=== PATIENT | female | born 1980 | race Caucasian/White ===

== ENCOUNTER 2023-06-21 06:37 | Inpatient (IN) ==
--- NOTE | 2023-06-21 07:30 | Emergency Department Note ---
Impression & Plan Influenza A, Hypoxia ED Provider Note CHIEF COMPLAINT: Illness x 5 days with cough and shortness of breath HISTORY OF PRESENT ILLNESS: Patient is a 42-year-old female with past medical history significant for hypertension, anxiety and hypothyroidism who presents to the emergency department accompanied by family for evaluation of illness. Patient reports that her son was ill with similar symptoms, she began to feel sick about 5 days ago. She reports fever 103 max, cough, headache, body and muscle aches. She reports chest tightness and shortness of breath even with minimal activity. Cough has become productive of yellowish/green sputum. She has tried Advil, Mucinex and a multisymptom cold and flu medication over the weekend. She tried going to [facility] but they were not taking walk-in patients this weekend. She is a smoker, has not been able to smoke for the last couple of days. She has been watching her oxygen saturations on a home pulse ox monitor this weekend and they have been between 84-90%. She reports temperature 101.1 F prior to arrival. She is vaccinated for COVID but has not had a flu vaccine this season. REVIEW OF SYSTEMS: Review of systems as per HPI. All other systems reviewed were negative. 10 systems reviewed. PMH: External medical records are reviewed and summarized as above/below. See Problem List. SOCIAL HISTORY: Patient lives at home9 with her family. Smoker. PHYSICAL EXAM: Vital Signs: Reviewed Nurse's notes. Afebrile in triage, oxygen saturation 90% on room air. MENTAL STATUS: Alert and cooperative. Nontoxic appearing. HEAD: Atraumatic, without temporal or scalp tenderness. EYES: PERRL, EOMI, no discharge or injection. EARS: Tympanic membranes intact, not inflamed, have normal contour. External canals clear. NOSE: Nares patent, turbinates edematous and boggy with clear rhinorrhea. MOUTH: Mucous membranes moist, no lesions, tongue and gums appear normal. THROAT: No pharyngeal injection, exudates, or tonsillar hypertrophy. Airway is patent. NECK: Supple, nontender, no lymphadenopathy. HEART: Regular rate and rhythm without murmurs, ectopy, gallops, or rubs. LUNGS: Breath sounds are diminished, with harsh wheezes throughout. SKIN: Normal. NEUROLOGICAL: Sensory and motor functions grossly intact. Normal gait. EMERGENCY DEPARTMENT COURSE: The patient was seen and assessed as above. External medical records are reviewed. She presents to the emergency department for evaluation of upper respiratory symptoms over the last 5 days with increasing cough, chest tightness and shortness of breath. IV lock was initiated. CBC with differential, CMP, troponin, D-dimer, serum hCG and urinalysis were collected. Upper respiratory Bio Fire was performed. Chest x- ray and EKG were obtained. She was observed on the cardiac monitor technician. Patient was treated with DuoNeb x 2 and IV Decadron. She was hydrated with normal saline solution. She was reassessed frequently. She was reexamined after both nebulizer treatments, had mild improvement in the wheezing. She continued to drop your O2 sats anytime she was off the oxygen, even briefly. I observed sat as low was 86% when I was in the room with the patient and had her off of the oxygen. Despite the normal D-dimer, given the patient's clinical picture and risk factors, I did recommend CT scan of the chest for PE. She was in agreement. Fortunately, no PE. Groundglass opacities noted favor atypical/viral pneumonitis, which does appear consistent with her clinical picture. All laboratory and diagnostic imaging studies were discussed with attending physician, Dr. Alcala. Test results were reviewed with the patient as well. After review of the information above and other included data, I feel the patient would benefit from inpatient care. Discussed observation/admission with the patient, she was in agreement. Patient referred to the [facility] for admission. Diagnostics, as interpreted by me: Laboratory studies: Mildly elevated white count at 12,600 with left shift. No anemia. Hyponatremia with a sodium of 133, otherwise no significant electrolyte imbalance. No OFELIA. No transaminitis. Troponin is not elevated. Serum hCG is negative. Upper respiratory Bio Fire positive for influenza A. ECG: Normal sinus rhythm, 78 bpm. No ectopy, no interval prolongation. No acute ischemic changes. Cardiac Monitoring: Cardiac monitoring: An order was placed for continuous cardiac monitoring. The monitor shows a NSR at a rate of 90 per my interpretation. Imaging studies: Chest x-ray clear, no consolidation or effusion. Chest CT, no PE. Differential diagnosis: acute myocardial infarction, acute coronary syndrome, myocarditis, pericarditis, viral illness, bronchitis, pulmonary embolism, pneumonia, COPD/asthma exacerbation, musculoskeletal, anxiety, costochondritis, among others. Past Med/Surg History Medical History Hypothyroidism Anxiety Hypertension Eczema Surgical History History of cholecystectomy History of dental surgery Social History Smoking Status: Current every day smoker Tobacco Type: Cigarettes Preferred Language: Turkmen Feels Safe at Home: Yes Allergies Allergies Allergy/AdvReac Type Severity Reaction Status Date / Time ampicillin [From Unasyn] Allergy Intermediate Verified 06/21/23 11:16 sulbactam [From Unasyn] Allergy Intermediate Verified 06/21/23 11:16 Home Meds Home Medications Medication Instructions Recorded Confirmed Lactobacillus acidophilus 10 10,000 mmu cells PO DAILY 06/21/23 06/21/23 billion cell capsule (Probiotic) cetirizine 10 mg tablet (Zyrtec) 10 mg PO DAILY PRN Allergy Symptoms 06/21/23 06/21/23 famotidine 20 mg tablet (Pepcid) 20 mg PO HS 06/21/23 06/21/23 levothyroxine 50 mcg tablet 50 mcg PO QAM 06/21/23 06/21/23 magnesium 500 mg tablet 500 mg PO HS 06/21/23 06/21/23 multivitamin 1 tab PO HS 06/21/23 06/21/23 nebivolol 10 mg tablet 10 mg PO HS 06/21/23 06/21/23 paroxetine HCl 40 mg tablet 40 mg PO HS 06/21/23 06/21/23 Results & Data (ED) Vital Signs Vital Signs - 24 hr 06/21/23 06:39 06/21/23 07:59 06/21/23 08:24 Temperature 36.4 C L Temperature Source Oral Pulse Rate 93 H Pulse Rate [Apical] 80 82 Pulse Rhythm Regular Pulse Strength Normal Respiratory Rate 18 16 16 Respiratory Effort / Characteristics Non-Labored Spontaneous Respiratory Depth Normal Respiratory Pattern Regular Blood Pressure 129/84 Blood Pressure [Left Arm] Blood Pressure Mean 99 Blood Pressure Mean [Left Arm] Blood Pressure Position Sitting Pulse Oximetry 90 93 88 L Oxygen Delivery Method Room Air Nebulizer Room Air Oxygen Flow Rate Sepsis Recent Fever Within 48 Hours Yes Sepsis New/Unexplained Change in Mental Status No Sepsis Action Taken by Nursing No Action Required 06/21/23 08:24 06/21/23 09:55 06/21/23 11:25 Temperature Temperature Source Pulse Rate Pulse Rate [Apical] 79 90 85 Pulse Rhythm Pulse Strength Respiratory Rate 16 16 19 Respiratory Effort / Characteristics Respiratory Depth Respiratory Pattern Blood Pressure Blood Pressure [Left Arm] 124/71 Blood Pressure Mean Blood Pressure Mean [Left Arm] 88 Blood Pressure Position Pulse Oximetry 91 94 93 Oxygen Delivery Method Nasal Cannula Nasal Cannula Nasal Cannula Oxygen Flow Rate 2 2 2 Sepsis Recent Fever Within 48 Hours Sepsis New/Unexplained Change in Mental Status Sepsis Action Taken by Nursing 06/21/23 12:59 06/21/23 13:16 Temperature Temperature Source Pulse Rate Pulse Rate [Apical] 83 Pulse Rhythm Pulse Strength Respiratory Rate 16 Respiratory Effort / Characteristics Respiratory Depth Respiratory Pattern Blood Pressure Blood Pressure [Left Arm] 124/71 Blood Pressure Mean Blood Pressure Mean [Left Arm] 88 Blood Pressure Position Pulse Oximetry 91 Oxygen Delivery Method Nasal Cannula Nasal Cannula Oxygen Flow Rate 2 Sepsis Recent Fever Within 48 Hours Sepsis New/Unexplained Change in Mental Status Sepsis Action Taken by Long Term Medications Current Medication List: was personally reviewed by me Laboratory Data Attestation: I reviewed the patient's lab results. 06/21/23 08:07 06/21/23 08:07 Lab Results 06/21/23 06/21/23 Range/Units 07:54 08:07 WBC 12.61 H (4.8-10.8) K/ul RBC 4.52 (4.20-5.40) M/uL Hgb 13.9 (12.0-16.0) g/dl Hct 40.6 (37.0-47.0) % MCV 89.8 (80.0-100.0) fL MCH 30.8 (25.0-34.0) pg MCHC 34.2 (32.0-36.0) g/dL RDW Std Deviation 44.1 (36.4-46.3) fL RDW Coeff of Jesus 13.3 (11.5-14.5) % Plt Count 337 (130-400) K/uL MPV 10.7 (9.4-12.4) fL Immature Gran % (Auto) 0.6 % Neut % (Auto) 69.2 % Lymph % (Auto) 23.7 % [place] % (Auto) 6.0 % Eos % (Auto) 0.2 % Baso % (Auto) 0.3 % Neut # (Auto) 8.73 H (1.40-6.50) K/uL Lymph # (Auto) 2.99 (1.20-3.40) K/uL [place] # (Auto) 0.76 H (0.11-0.59) K/uL Eos # (Auto) 0.02 (0.00-0.50) K/uL Baso # (Auto) 0.04 (0.00-0.20) K/uL Immature Gran # (Auto) 0.07 (0.01-0.20) K/uL D-Dimer 390 (0-500) ug/L FEU Sodium 133 L (136-145) mmol/L Potassium 4.5 (3.5-5.1) mmol/L Chloride 101 (98-107) mmol/L Carbon Dioxide 24 (21-32) mmol/L Anion Gap 8 (3-11) BUN 8 (6-23) mg/dl Creatinine 0.83 (0.6-1.2) mg/dl Est Cr Clr Drug Dosing 96.6 ml/min Est GFR ( Amer) 100.1 ml/min Est GFR (Non-Af Amer) 86.4 ml/min BUN/Creatinine Ratio 9.6 L (10-20) Glucose 106 H (70-99(Fasting)) mg/dl Calcium 9.1 (8.6-10.3) mg/dl Total Bilirubin 0.2 (0.2-1.0) mg/dl AST 23 (13-39) U/L ALT 16 (7-52) U/L Alkaline Phosphatase 61 (34-104) U/L Troponin I High Sens 3.4 (0-14) pg/ml Total Protein 7.2 (6.0-8.3) gm/dl Albumin 4.2 (3.4-5.0) gm/dl Globulin 3.0 (2.5-4.0) gm/dl Albumin/Globulin Ratio 1.4 (0.9-2) HCG, Qual Negative (Negative) Adenovirus (PCR) Not Detected (NotDetected) B. pertussis DNA (PCR) Not Detected (NotDetected) B.parapertussis DNA PCR Not Detected (NotDetected) C. pneumoniae DNA (PCR) Not Detected (NotDetected) Coronavirus OC43 (PCR) Not Detected (NotDetected) Coronavirus HKU1 (PCR) Not Detected (NotDetected) Coronavirus 229E (PCR) Not Detected (NotDetected) SARS-CoV-2 (PCR) Not Detected (NotDetected) Coronavirus NL63 (PCR) Not Detected (NotDetected) Human Metapneumovir PCR Not Detected (NotDetected) Influenza A (H3) PCR DETECTED A (NotDetected) Influenza Type B (PCR) Not Detected (NotDetected) M. pneumoniae (PCR) Not Detected (NotDetected) Parainfluenza 1 (PCR) Not Detected (NotDetected) Parainfluenza 2 (PCR) Not Detected (NotDetected) Parainfluenza 3 (PCR) Not Detected (NotDetected) Parainfluenza 4 (PCR) Not Detected (NotDetected) RSV (PCR) Not Detected (NotDetected) Entero/Rhino (PCR) Not Detected (NotDetected) Administered Medications Discontinued Medications Albuterol (Albut/Ipratrop 3mg/0.5mg Neb 3 Ml Vial) 3 ml NEB NOW STA; Protocol Stop: 06/21/23 07:27 Last Admin: 06/21/23 07:58 Dose: 3 ml Documented By: MICHAEL Albuterol (Albut/Ipratrop 3mg/0.5mg Neb 3 Ml Vial) 3 ml NEB NOW STA; Protocol Stop: 06/21/23 09:15 Last Admin: 06/21/23 09:27 Dose: 3 ml Documented By: EVANGELINA Dexamethasone Sodium Phosphate (DexamethasonePf 10 Mg/Ml Vial) 10 mg IV NOW ONE Stop: 06/21/23 09:15 Last Admin: 06/21/23 09:27 Dose: 10 mg Documented By: EVANGELINA Sodium Chloride (Nss) 1,000 mls @ 999 mls/hr IV .Q1H1M SHRAVAN Stop: 06/21/23 08:26 Last Infusion: 06/21/23 11:23 Dose: Infused Documented By: Admin: 06/21/23 07:58 Dose: 999 mls/hr Documented By: MICHAEL Sodium Chloride (Nss) 1,000 mls @ 999 mls/hr IV .Q1H1M SHRAVAN Stop: 06/21/23 11:01 Last Infusion: 06/21/23 13:02 Dose: Infused Documented By: Admin: 06/21/23 11:23 Dose: 999 mls/hr Documented By: KV Ioversol (Optiray 320 125ml) 118 ml IV ONCE ONE Stop: 06/21/23 11:14 Last Admin: 06/21/23 11:13 Dose: 118 ml Documented By: AVERY Imaging Data Attestation: I personally reviewed and interpreted this imaging study as follows: Radiologist's Impression: Chest X-Ray 06/21/23 07:26 XR chest 1V portable HISTORY: 42 years-old Female Dyspnea acute shortness of breath COMPARISON: None TECHNIQUE: AP view of the chest FINDINGS: Cardiomediastinal and hilar silhouettes are within normal limits. No pneumothorax, pleural effusion, airspace consolidation or pulmonary edema. Bones of the chest appear grossly intact. IMPRESSION: No acute process. ACT 112: Negative or not required by law. The above report was generated using voice recognition software. It may contain grammatical, syntax or spelling errors. Electronically signed by: German Mendoza M.D. 06/21/2023 8:24 AM Chest CTA 06/21/23 10:00 CHEST CTA for PULMONARY ARTERIES CT DOSE: 834.28 mGy.cm HISTORY: Shortness of breath, HYPOXIA, FLU A + TECHNIQUE: Multiaxial CT images of the chest were performed following the intravenous administration of contrast to evaluate the pulmonary arteries. 3D/Maximal intensity projection images were also obtained. Sagittal and coronal reformations were also reviewed. A dose lowering technique was utilized adhering to the principles of ALARA. COMPARISON STUDY: None. FINDINGS: Normal caliber thoracic aorta with no evidence for a dissection. The heart is normal in size. No pleural or pericardial effusions. No filling defects within the pulmonary arteries to suggest a pulmonary embolus. No acute fractures. Limited views of the upper abdomen demonstrate a normal liver, spleen, and adrenal glands. Prior cholecystectomy. The thyroid gland enhances normally. No mediastinal or left hilar lymphadenopathy. There are borderline enlarged right hilar lymph nodes measuring up to 8 mm in short axis diameter. These are asymmetric in comparison to the left side. Normal esophagus. No pneumothorax. The trachea is patent. Mild central bronchial wall thickening with a few partially opacified distal right lower lobe bronchi. Mosaic attenuation within the lungs suggestive of mild air trapping. There are small patchy groundglass airspace opacities seen within the right lung most pronounced within the right upper lobe. This favors a mild atypical/viral pneumonitis. Right basilar linear densities favor subsegmental atelectasis or scarring. IMPRESSION: 1. No evidence for a pulmonary embolus. 2. There are small patchy groundglass airspace opacities seen within the right lung most pronounced within the right upper lobe. This favors a mild atypical/viral pneumonitis. 3. Mild central bronchial wall thickening with evidence for mild air trapping. ACT 112: Negative or not required by law. Electronically signed by: Chris Leonard M.D. 06/21/2023 12:04 PM Discharge Plan Visit Data Chief Complaint: Flu Like Symptoms Stated Complaint: CHEST PAIN,FEVER,SHORTNESS OF BREATH ED Provider: Surinder Alcala ED Midlevel Provider: Ramirez Christine Discharge Problem: Influenza A, Hypoxia Patient Disposition: Admitted As Inpatient Discharge Instructions Interventions: ED Discharge Assessment Last Done: 06/21/23 13:16 Forms Stand Alone Forms: [facility] Prescriptions Prescriptions: No Action multivitamin Tablet 1 tab PO HS magnesium 500 mg Tablet 500 mg PO HS cetirizine [Zyrtec] 10 mg Tablet 10 mg PO DAILY PRN (Reason: Allergy Symptoms) famotidine [Pepcid] 20 mg Tablet 20 mg PO HS levothyroxine 50 mcg tablet 50 mcg PO QAM paroxetine HCl 40 mg tablet 40 mg PO HS nebivolol 10 mg tablet 10 mg PO HS Probiotic 10 billion cell Capsule 10,000 mmu cells PO DAILY Referrals Referrals: Pamela Hrenandez MD [Hospitalist] -
[2023-06-21] MEDS: SODIUM CHLORIDE 0.9% 1,000 ML IV SCH ×2 (07:58→11:23)
[2023-06-21] MEDS: ALBUT/IPRATROP 3MG/0.5MG NEB 3 ML VIAL NEB STA ×2 (07:58→09:27)
--- NOTE | 2023-06-21 08:26 | XRay Report ---
XR chest 1V portable HISTORY: 42 years-old Female Dyspnea acute shortness of breath COMPARISON: None TECHNIQUE: AP view of the chest FINDINGS: Cardiomediastinal and hilar silhouettes are within normal limits. No pneumothorax, pleural effusion, airspace consolidation or pulmonary edema. Bones of the chest appear grossly intact. IMPRESSION: No acute process. ACT 112: Negative or not required by law. The above report was generated using voice recognition software. It may contain grammatical, syntax o r spelling errors. Electronically signed by: German Mendoza M.D. 06/21/2023 8:24 AM
[2023-06-21 08:49] LABS: Albumin Globulin Ratio 1.4 (0.9-2); Albumin Level 4.2 gm/dl (3.4-5.0); BUN Creatinine Ratio 9.6 (10-20); Bilirubin,Total 0.2 mg/dl (0.2-1.0); Calcium 9.1 mg/dl (8.6-10.3); Creatinine Clr Calc Pharmacy 96.6 ml/min; Est GFR (African American) 100.1 ml/min; Est GFR (Non-African American) 86.4 ml/min; Potassium 4.5 mmol/L (3.5-5.1); Total Protein 7.2 gm/dl (6.0-8.3)
[2023-06-21 08:55] LABS: Troponin I High Sensitivity 3.4 pg/ml (0-14)
[2023-06-21 08:58] LABS: Adenovirus PCR Not Detected (NotDetected); Bordetella parapertussis PCR Not Detected (NotDetected); Bordetella pertussis PCR Not Detected (NotDetected); Chlamydia pneumoniae PCR Not Detected (NotDetected); Coronavirus 229E PCR Not Detected (NotDetected); Coronavirus CoV-2 (COVID19)PCR Not Detected (NotDetected); Coronavirus HKU1 PCR Not Detected (NotDetected); Coronavirus NL63 PCR Not Detected (NotDetected); Coronavirus OC43PCR Not Detected (NotDetected); Human Metapneumovirus PCR Not Detected (NotDetected); Influenza A (H3) PCR DETECTED (NotDetected); Influenza B PCR Not Detected (NotDetected); Mycoplasma pneumoniae PCR Not Detected (NotDetected); Parainfluenza Virus 1 PCR Not Detected (NotDetected); Parainfluenza Virus 2 PCR Not Detected (NotDetected); Parainfluenza Virus 3 PCR Not Detected (NotDetected); Parainfluenza Virus 4 PCR Not Detected (NotDetected); Respiratory Syncytial VirusPCR Not Detected (NotDetected); Rhinovirus/Enterovirus PCR Not Detected (NotDetected)
[2023-06-21 08:59] LABS: Basophils # (auto) 0.04 K/uL (0.00-0.20); Basophils % (auto) 0.3 %; Eosinophils # (auto) 0.02 K/uL (0.00-0.50); Eosinophils % (auto) 0.2 %; Hematocrit (blood only) 40.6 % (37.0-47.0); Hemoglobin 13.9 g/dl (12.0-16.0); Immature Granulocytes # (auto) 0.07 K/uL (0.01-0.20); Immature Granulocytes % (auto) 0.6 %; Lymphocytes # (auto) 2.99 K/uL (1.20-3.40); Lymphocytes % (auto) 23.7 %; Mean Corpuscular Hemoglobin 30.8 pg (25.0-34.0); Mean Corpuscular Hgb Conc 34.2 g/dL (32.0-36.0); Mean Corpuscular Volume 89.8 fL (80.0-100.0); Mean Platelet Volume 10.7 fL (9.4-12.4); Monocytes # (auto) 0.76 K/uL (0.11-0.59); Neutrophils # (auto) 8.73 K/uL (1.40-6.50); Neutrophils % (auto) 69.2 %; Platelet Count 337 K/uL (130-400); Pregnancy Test, Serum Negative (Negative); RDW Coefficient of Variation 13.3 % (11.5-14.5); RDW Standard Deviation 44.1 fL (36.4-46.3); Red Blood Count 4.52 M/uL (4.20-5.40); White Blood Count 12.61 K/ul (4.8-10.8)
[2023-06-21 09:02] LABS: D Dimer 390 ug/L FEU (0-500)
[2023-06-21] MEDS: dexAMETHasone**PF** 10 MG/ML VIAL IV ONE (09:27)
[2023-06-21] MEDS: OPTIRAY 320 125ml IV ONE (11:13)
--- NOTE | 2023-06-21 12:06 | CT Scan Report ---
CHEST CTA for PULMONARY ARTERIES CT DOSE: 834.28 mGy.cm HISTORY: Shortness of breath, HYPOXIA, FLU A + TECHNIQUE: Multiaxial CT images of the chest were performed following the intravenous administration of contrast to evaluate the pulmonary arteries. 3D/Maximal intensity projection images were also obta ined. Sagittal and coronal reformations were also reviewed. A dose lowering technique was utilized a dhering to the principles of ALARA. COMPARISON STUDY: None. FINDINGS: Normal caliber thoracic aorta with no evidence for a dissection. The heart is normal in siz e. No pleural or pericardial effusions. No filling defects within the pulmonary arteries to suggest a pulmonary embolus. No acute fractures. Limited views of the upper abdomen demonstrate a normal liver , spleen, and adrenal glands. Prior cholecystectomy. The thyroid gland enhances normally. No mediasti nal or left hilar lymphadenopathy. There are borderline enlarged right hilar lymph nodes measuring up to 8 mm in short axis diameter. These are asymmetric in comparison to the left side. Normal esophagu s. No pneumothorax. The trachea is patent. Mild central bronchial wall thickening with a few partiall y opacified distal right lower lobe bronchi. Mosaic attenuation within the lungs suggestive of mild a ir trapping. There are small patchy groundglass airspace opacities seen within the right lung most pr onounced within the right upper lobe. This favors a mild atypical/viral pneumonitis. Right basilar li near densities favor subsegmental atelectasis or scarring. IMPRESSION: 1. No evidence for a pulmonary embolus. 2. There are small patchy groundglass airspace opacities seen within the right lung most pronounced w ithin the right upper lobe. This favors a mild atypical/viral pneumonitis. 3. Mild central bronchial wall thickening with evidence for mild air trapping. ACT 112: Negative or not required by law. Electronically signed by: Chris Leonard M.D. 06/21/2023 12:04 PM
--- NOTE | 2023-06-21 12:36 | History & Physical Report ---
Date of Service June 21, 2023 Assessment & Plan (1) Influenza A: (2) Tobacco use: (3) Hypoxia: Plan: - Admit to med surg - Pulse ox Q shift. Pt appears comfortable sitting in bed. New O2 requirement of 3L here. Flu positive. - Cont supportive care Tessalon Perles, guaifenesin, Hycodan, flutter, incentive spirometry, fluticason nasal spray, hycodan cough syrup - CTA of the chest reviewed no PE, as above - Prednisone 40 mg daily starting in am, was given solumedrol 125 IV in the ER - Doxy and Ceftriaxone abx started - Cessation of smoking encouraged at bedside - pt states that she stopped smoking 2 days ago, denies need for nicotine patch (4) Hypothyroidism: Plan: - Chronic, stable - Cont levothyroxine 50 mcg daily (5) Anxiety: Plan: - Cont paroxitine - Chronic, stable (6) GERD (gastroesophageal reflux disease): Plan: - Pt states that she is nebivolol for reflux issues - upon review of Noom she has elevated BP previously - will continue nebivolol - Cont famotidine DVT ppx: teds, scds, ambulatory Lines: 1 PIV FEN/GI: HH diet CODE: FULL Dispo: From home, likely to remain in the hospital x 1-2 days A total of 75 minutes were spent with greater than 50% of that time face to face with the patient, personally reviewing all current laboratories, imaging studies, past medication reconciliation, outpatient chart review, and discussion with specialists to collaborate care for the patient with attending. Please see attending documentation for corrections and/or additions. History of Present Illness Chief Complaint: Flu like symptoms Primary Care Provider: Pamela Hernandez MD This is a 42 F with PMHx of obesity with BMI 37.6, previous tobacco use She reports having had symptoms since last Wednesday, and reports her son who is 9 yo was sick right before she was. She states her symptoms include, cough, fever, chills, congestion, and these have persisted and she had a pulse ox at home which was running low which concerned her therefore presented to hospital today. On Wednesday she attempted to go to urgent care but did not get seen due to high volume of patients there. She is also reporting VASQUEZ with minimal ADLS. Cough is present, initially dry and now productive, and not feels sore and that it is painful to cough. Her mucous from the nose is yellow/greenish and still feels very congested. OTC meds of dextromethorphan, guaifenesin, and tylenol and has been trying these at home with minimal relief. Social: Current tobacco user with cigarettes since mid 20s and has quit a few times over the years but always restarts. She stopped smoking 2 days ago due to her symptoms. Admits to occasional alcohol use. Denies illicit drug use or marijuana. Allergies Allergy/AdvReac Type Severity Reaction Status Date / Time ampicillin [From Unasyn] Allergy Intermediate Verified 06/21/23 11:16 sulbactam [From Unasyn] Allergy Intermediate Verified 06/21/23 11:16 Home Medications Medication Instructions Recorded Confirmed Type Lactobacillus acidophilus 10 10,000 mmu cells PO DAILY 06/21/23 06/21/23 History billion cell capsule (Probiotic) cetirizine 10 mg tablet (Zyrtec) 10 mg PO DAILY PRN Allergy Symptoms 06/21/23 06/21/23 History famotidine 20 mg tablet (Pepcid) 20 mg PO HS 06/21/23 06/21/23 History levothyroxine 50 mcg tablet 50 mcg PO QAM 06/21/23 06/21/23 History magnesium 500 mg tablet 500 mg PO HS 06/21/23 06/21/23 History multivitamin 1 tab PO HS 06/21/23 06/21/23 History nebivolol 10 mg tablet 10 mg PO HS 06/21/23 06/21/23 History paroxetine HCl 40 mg tablet 40 mg PO HS 06/21/23 06/21/23 History Past Med/Surg History Medical History Hypothyroidism Anxiety Hypertension Eczema Surgical History History of cholecystectomy History of dental surgery Social History Smoking Status: Current every day smoker Tobacco Type: Cigarettes Preferred Language: [place]i Feels Safe at Home: Yes Review of Systems Review of Systems: Constitutional: + generalized malaise, + fever, sweats and chills Eyes: No diplopia, no worsening or blurred vision ENT: normal hearing, no trouble swallowing Respiratory: + cough, sputum, dyspnea on exertion, + occasional wheeze Cardiovascular: No chest pain, tightness or palpitations Abdomen: No pain, nausea, vomiting, diarrhea or constipation Musculoskeletal: No joint pain, calf pain, swelling Neurologic: No weakness, numbness/tingling, or balance problems Psychiatric: No anxiety or depression Skin: No rash or itch Physical Exam Physical Exam: General: awake, alert, no apparent distress, + obese with BMI of 37.6 Head: Normocephalic, atraumatic ENT: PERRL, EOMI, no pharyngeal exudate, mucous membranes moist Chest: on 3L, + tight breath sounds throughout, + rales at bases, no wheezing, no crackles, adventitious breath sounds Cardiac: Regular rate and rhythm, no murmur, no JVD, normal peripheral pulses, good capillary refill Abdominal: NABS x 4 quadrants, soft, nondistended, nontender to palpation, no rebound or guarding Extremities: Normal inspection, no peripheral edema or erythema, calfs nontender to palpation Psych: Normal mood and affect Neuro: AAO x 3, strength intact bilaterally and rated 5/5, no motor deficits, speech is clear, no peripheral sensory deficits Results & Data Results & Data Vital Signs (Past 12 Hours) Vital Signs Temp Pulse Pulse Resp BP BP Pulse Ox 06/21/23 11:25 85 19 124/71 93 06/21/23 09:55 90 16 94 06/21/23 08:24 79 16 91 06/21/23 08:24 82 16 88 L 06/21/23 07:59 80 16 93 06/21/23 06:39 36.4 C L 93 H 18 129/84 90 O2 Del Method O2 Flow Rate 06/21/23 11:25 Nasal Cannula 2 06/21/23 09:55 Nasal Cannula 2 06/21/23 08:24 Nasal Cannula 2 06/21/23 08:24 Room Air 06/21/23 07:59 Nebulizer 06/21/23 06:39 Room Air Laboratory Results 06/21/23 06/21/23 08:07 07:54 WBC 12.61 H RBC 4.52 Hgb 13.9 Hct 40.6 MCV 89.8 MCH 30.8 MCHC 34.2 RDW Std Deviation 44.1 RDW Coeff of Jesus 13.3 Plt Count 337 MPV 10.7 Immature Gran % (Auto) 0.6 Neut % (Auto) 69.2 Lymph % (Auto) 23.7 [place] % (Auto) 6.0 Eos % (Auto) 0.2 Baso % (Auto) 0.3 Neut # (Auto) 8.73 H Lymph # (Auto) 2.99 [place] # (Auto) 0.76 H Eos # (Auto) 0.02 Baso # (Auto) 0.04 Immature Gran # (Auto) 0.07 D-Dimer 390 Sodium 133 L Potassium 4.5 Chloride 101 Carbon Dioxide 24 Anion Gap 8 BUN 8 Creatinine 0.83 Est Cr Clr Drug Dosing 96.6 Est GFR ( Amer) 100.1 Est GFR (Non-Af Amer) 86.4 BUN/Creatinine Ratio 9.6 L Glucose 106 H Calcium 9.1 Total Bilirubin 0.2 AST 23 ALT 16 Alkaline Phosphatase 61 Troponin I High Sens 3.4 Total Protein 7.2 Albumin 4.2 Globulin 3.0 Albumin/Globulin Ratio 1.4 HCG, Qual Negative Adenovirus (PCR) Not Detected B. pertussis DNA (PCR) Not Detected B.parapertussis DNA PCR Not Detected C. pneumoniae DNA (PCR) Not Detected Coronavirus OC43 (PCR) Not Detected Coronavirus HKU1 (PCR) Not Detected Coronavirus 229E (PCR) Not Detected SARS-CoV-2 (PCR) Not Detected Coronavirus NL63 (PCR) Not Detected Human Metapneumovir PCR Not Detected Influenza A (H3) PCR DETECTED A Influenza Type B (PCR) Not Detected M. pneumoniae (PCR) Not Detected Parainfluenza 1 (PCR) Not Detected Parainfluenza 2 (PCR) Not Detected Parainfluenza 3 (PCR) Not Detected Parainfluenza 4 (PCR) Not Detected RSV (PCR) Not Detected Entero/Rhino (PCR) Not Detected Diagnostic Findings Chest X-Ray 06/21/23 07:26 XR chest 1V portable HISTORY: 42 years-old Female Dyspnea acute shortness of breath COMPARISON: None TECHNIQUE: AP view of the chest FINDINGS: Cardiomediastinal and hilar silhouettes are within normal limits. No pneumothorax, pleural effusion, airspace consolidation or pulmonary edema. Bones of the chest appear grossly intact. IMPRESSION: No acute process. ACT 112: Negative or not required by law. The above report was generated using voice recognition software. It may contain grammatical, syntax or spelling errors. Electronically signed by: German Mendoza M.D. 06/21/2023 8:24 AM Chest CTA 06/21/23 10:00 CHEST CTA for PULMONARY ARTERIES CT DOSE: 834.28 mGy.cm HISTORY: Shortness of breath, HYPOXIA, FLU A + TECHNIQUE: Multiaxial CT images of the chest were performed following the intravenous administration of contrast to evaluate the pulmonary arteries. 3D/Maximal intensity projection images were also obtained. Sagittal and coronal reformations were also reviewed. A dose lowering technique was utilized adhering to the principles of ALARA. COMPARISON STUDY: None. FINDINGS: Normal caliber thoracic aorta with no evidence for a dissection. The heart is normal in size. No pleural or pericardial effusions. No filling defects within the pulmonary arteries to suggest a pulmonary embolus. No acute fractures. Limited views of the upper abdomen demonstrate a normal liver, spleen, and adrenal glands. Prior cholecystectomy. The thyroid gland enhances normally. No mediastinal or left hilar lymphadenopathy. There are borderline enlarged right hilar lymph nodes measuring up to 8 mm in short axis diameter. These are asymmetric in comparison to the left side. Normal esophagus. No pneumothorax. The trachea is patent. Mild central bronchial wall thickening with a few partially opacified distal right lower lobe bronchi. Mosaic attenuation within the lungs suggestive of mild air trapping. There are small patchy groundglass airspace opacities seen within the right lung most pronounced within the right upper lobe. This favors a mild atypical/viral pneumonitis. Right basilar linear densities favor subsegmental atelectasis or scarring. IMPRESSION: 1. No evidence for a pulmonary embolus. 2. There are small patchy groundglass airspace opacities seen within the right lung most pronounced within the right upper lobe. This favors a mild atypical/viral pneumonitis. 3. Mild central bronchial wall thickening with evidence for mild air trapping. ACT 112: Negative or not required by law. Electronically signed by: Chris Leonard M.D. 06/21/2023 12:04 PM Code Status & VTE Plan Code Status Full code - discussed with pt at bedside. Supervising Physician Co-Signing Physician Notes I have seen and discussed the case with the collaborating advanced practitioner. I agree with the above H&P. I have reviewed and confirmed the patients medical history, the findings on physical examination, and the patients diagnosis and treatment plan with Kristi GARCIA and agree with the information documented. In short, Ms. Haines is a 42 year old woman with history of hypothyroidism, HTN, obesity who is admitted for acute hypoxic respiratory failure iso Influenza A infection. She reports fevers up to 103F. Noted O2 saturations in the 80s at home, which accompanied progressive SOB--thus prompting presentation. GENERAL APPEARANCE: AxOx4, generally well-appearing F, no acute distress. HEENT: NC, AT. MMM. EOMI, clear conjunctiva, oropharynx clear. NECK: Supple without lymphadenopathy. No stiffness or restricted ROM. HEART: Normal rate and regular rhythm, normal S1/S1, no m/r/g LUNGS: poor airway movement 2/2 effort/cough, 3 L NC ABDOMEN: Soft, nontender, nondistended with good bowel sounds heard. BACK: No CVAT, no obvious deformity. EXTREMITIES: Without cyanosis, clubbing or edema. NEUROLOGICAL: Grossly nonfocal. Alert and oriented, moving all 4 extremities. CN not formally tested but appear grossly intact. Skin: Warm and dry without any rash. #Acute hypoxic respiratory failure #Viral URI 2/2 Influenzae A #Tobacco Use Denies history of inhlaer use, asthma/copd. Reports last cigarette 2 days prior, reports longstanding history since 20s of fluctuating smoking habits -s/p 10mg dex -Continue pred burst -Symptomatic management -Start doxy CTX for superimposed abx coverage -Wean O2 as needed Rest of plan as above I spent a total of 25 minutes coordinating, documenting, and providing care for this patient excluding time spent in the performance of separately billed services. All of the aforementioned completed outside of collaborating with the assigned advanced practitioner for a full treatment plan. I have reviewed the advanced practitioner's documentation, and I agree with, and take responsibility for the plan of care
[2023-06-21] MEDS ORDERED: CETIRIZINE HCL 10 MG TABLET PO PRN (14:48)
[2023-06-21] MEDS ORDERED: cefTRIAXone SODIUM 1,000 MG in DEXTROSE 5 % MINI-B 50 ML IV SCH (14:48)
[2023-06-21] MEDS ORDERED: ONDANSETRON INJ 2 MG/ML 2 ML VIAL IV PRN (14:48)
[2023-06-21] MEDS: ALBUT/IPRATROP 3MG/0.5MG NEB 3 ML VIAL NEB SCH (15:16)
[2023-06-21] MEDS: cefTRIAXone SODIUM 2,000 MG in DEXTROSE 5 % MINI-B 50 ML IV SCH (15:33)
[2023-06-21] MEDS: BENZONATATE 100 MG CAPSULE PO SCH (15:38)
[2023-06-21] MEDS: guaiFENesin 600 MG TABCR PO SCH (16:16)
[2023-06-21 19:05] LABS: Appearance Urine Clear (Clear); Bacteria Urine Automated Negative (Negative); Bilirubin Urine Negative (Negative); Blood Urine 1+ (Negative); Cast Urine Automated 0 /lpf (0-5); Color Urine Yellow; Epithelial Cell Urine Auto 0-5 /lpf (0-5); Glucose Urine UA 1+ (Negative); Ketones Urine Negative (Negative); Leukocyte Esterase Urine Negative (Negative); Nitrite Urine Negative (Negative); Protein Urine Negative (Negative); Urobilinogen Urine Negative (Negative); WBC Urine Automated 0 /hpf (0-5)
[2023-06-21] MEDS: FLUTICASONE PROPIONATE NA SPR 16 GM BTL SCH (19:39)
[2023-06-21] MEDS: MULTIVITAMIN TAB PO SCH (19:40)
[2023-06-21] MEDS: PARoxetine HCL 20 MG TAB PO SCH (19:40)
[2023-06-21] MEDS: FAMOTIDINE 20 MG TAB PO SCH (19:40)
[2023-06-21] MEDS: METOPROLOL TARTRATE 50 MG TAB PO SCH (19:41)
[2023-06-21] MEDS: DOXYCYCLINE HYCLATE 100 MG CAP PO SCH (19:41)
[2023-06-21] MEDS: MAGNESIUM OXIDE 400 MG TAB PO SCH (19:41)
[2023-06-21] MEDS: ALBUT/IPRATROP 3MG/0.5MG NEB 3 ML VIAL ONE (22:04)
[2023-06-22] MEDS: HYDROcodone/HOMATROPINE SYRUP 5MG/1.5MG 5ML UDP PO PRN (00:19)
[2023-06-22] MEDS: ACETAMINOPHEN 325 MG TAB PO PRN (00:19)
[2023-06-22] MEDS: LEVOTHYROXINE SODIUM 50 MCG TABLET PO SCH (05:36)
--- NOTE | 2023-06-22 05:56 | Electrocardiogram Report ---
Test Reason : Blood Pressure : / mmHG Vent. Rate : 078 BPM Atrial Rate : 078 BPM P-R Int : 152 ms QRS Dur : 070 ms QT Int : 366 ms P-R-T Axes : 037 038 043 degrees QTc Int : 417 ms Normal sinus rhythm Normal ECG No previous ECGs available Confirmed by Carlos Gallo ([id number]) on 06/22/2023 5:56:24 AM Referred By: REFERRED SELF Confirmed By:Carlos aGllo
[2023-06-22] MEDS: ADVANCED PROBIOTIC 625 MG CAPSULE PO SCH (08:24)
[2023-06-22] MEDS: predniSONE 20 MG TAB PO SCH (08:25)
[2023-06-22 09:54] LABS: Hematocrit (blood only) 38.2 % (37.0-47.0); Hemoglobin 13.1 g/dl (12.0-16.0); Mean Corpuscular Hemoglobin 30.7 pg (25.0-34.0); Mean Corpuscular Hgb Conc 34.3 g/dL (32.0-36.0); Mean Corpuscular Volume 89.5 fL (80.0-100.0); Mean Platelet Volume 10.1 fL (9.4-12.4); Platelet Count 332 K/uL (130-400); RDW Coefficient of Variation 13.6 % (11.5-14.5); RDW Standard Deviation 44.9 fL (36.4-46.3); Red Blood Count 4.27 M/uL (4.20-5.40); White Blood Count 9.79 K/ul (4.8-10.8)
[2023-06-22 10:29] LABS: BUN Creatinine Ratio 10.7 (10-20); Calcium 9.1 mg/dl (8.6-10.3); Creatinine Clr Calc Pharmacy 106.9 ml/min; Est GFR (African American) 113.1 ml/min; Est GFR (Non-African American) 97.6 ml/min; Potassium 4.1 mmol/L (3.5-5.1)
--- NOTE | 2023-06-22 14:26 | Hospitalist Progress Note ---
Date of Service June 22, 2023 Assessment & Plan (1) Influenza A: (2) Tobacco use: (3) Hypoxia: (4) Hypothyroidism: (5) Anxiety: (6) GERD (gastroesophageal reflux disease): Plan This is a 42-year-old female with significant past medical history of obesity, tobacco abuse, hypothyroidism and GERD who presents to ED secondary to hypoxia and worsening shortness of breath. Acute hypoxic respiratory failure secondary to influenza A Viral URI -influenza A Viral pneumonia Tobacco use Patient admitted to [facility] ---CTA of chest revealed no evidence of PE, small patchy ground glass airspace opacities seen within the right lung, more pronounced in the right upper lobe. This favors a mild atypical/viral pneumonitis. Mild central bronchial wall thickening with evidence of mild air trapping. Pulmonary toilet encouraged with flutter valve and incentive spirometer, nebs She is also encouraged to ambulate as able Continue empiric IV ceftriaxone and doxycycline Prednisone 40 mg daily for 5 days, day #1 Elevated fasting glucose Obtain A1c in a.m. Tobacco abuse Encourage cessation Anxiety Chronic, stable Continue Paxil GERD She states that she uses nebivolol for reflux issues Continue nebivolol and pepcid Obesity, BMI 37.6 Encourage diet and lifestyle modification DVT ppx: SQ Lovenox, encourage cessation FULL CODE PCP: None Dispo: pt remains admitted, still requiring O2, not medically stable for discharge Pt was seen and examined in collaboration with Dr. Hadley, please see addendum A total of 51 minutes was spent coordinating, documenting, and providing care for this patient excluding time spent in the performance of separately billed services. This included personally viewing all current laboratories and imaging studies, medication reconciliation, outpatient chart review, and discussion with specialists. Admission and Anticipated Discharge Date Admission Date: June 21, 2023 Supervising Physician Co-Signing Physician Notes Attending Addendum: care coordinated with URIEL Heller please refer to her notes for full details, I agree with her notes patient seen and examined, records reviewed by myself as well diagnoses and plan of care as per URIEL Hadley MD Subjective Patient was seen and examined at 363. Follow-up hypoxia influenza A. She states that she overall does not feel that bad; however, with little exertion she gets short of breath. She states respiratory was in this morning and was able to wean her down to 2 L. She is severely tired she has not slept well in days. She denies fever, chills, sweats, lightheadedness, dizziness, chest pain, hemoptysis, nausea, vomiting or abdominal pain. She states overall appetite is just diminished due to feeling unwell. She does continue to have cough. She states that symptoms started initially last . Review of Systems Review of Systems: All systems reviewed & are unremarkable except as noted in HPI & below Physical Exam Physical Exam: Gen: WD/WN, NAD, A&O x3 HEENT: Normocephalic, atraumatic, conjunctivae moist, sclerae anicteric, mucous membranes moist. Lung: Clear to Auscultation bilaterally, no wheezes/rales/rhonchi , on O2 via NC Heart: Regular rate, regular rhythm, no murmurs, rubs, or gallops Abdomen: Soft, NT, ND +BS x 4 Extremities: No edema Skin: Warm, no rash, negative turgor. Results & Data Results & Data Vital Signs (Past 12 Hours) Vital Signs Temp Pulse Resp BP Pulse Ox O2 Del Method O2 Flow Rate 06/22/23 11:14 88 16 94 Nasal Cannula 2 06/22/23 08:00 Nasal Cannula 2 06/22/23 07:31 36.7 C 76 17 128/76 92 Nasal Cannula 2 06/22/23 07:19 80 18 96 Nasal Cannula 3 06/22/23 02:40 89 15 93 Nasal Cannula 3 Laboratory Results Short CBC 06/22/23 Range/Units 09:32 WBC 9.79 (4.8-10.8) K/ul Hgb 13.1 (12.0-16.0) g/dl Hct 38.2 (37.0-47.0) % Plt Count 332 (130-400) K/uL BMP 06/22/23 09:32 Sodium 137 Potassium 4.1 Chloride 104 Carbon Dioxide 24 BUN 8 Creatinine 0.75 Glucose 137 H Calcium 9.1 Urine 06/21/23 Range/Units Unknown Urine Color Yellow Urine Appearance Clear (Clear) Urine pH 7.0 (4.5-7.5) Ur Specific Brothers 1.010 (1.000-1.030) Urine Protein Negative (Negative) Urine Glucose (UA) 1+ H (Negative) Medications Administered Current Inpatient Medications Acetaminophen (Acetaminophen 325 Mg Tab) 650 mg PO Q4H PRN PRN Reason: Moderate Pain (Scale 4, 5, 6) Stop: 07/21/23 14:47 Last Admin: 06/22/23 00:19 Dose: 650 mg Albuterol (Albut/Ipratrop 3mg/0.5mg Neb 3 Ml Vial) 3 ml NEB Q4R SHRAVAN; Protocol Stop: 07/21/23 14:59 Last Admin: 06/22/23 11:14 Dose: 3 ml Benzonatate (Benzonatate 100 Mg Capsule) 100 mg PO TID [facility] Stop: 07/21/23 13:59 Last Admin: 06/22/23 08:23 Dose: 100 mg Cetirizine HCl (Cetirizine Hcl 10 Mg Tablet) 10 mg PO DAILY PRN PRN Reason: Allergy Symptoms Stop: 07/21/23 14:47 Doxycycline Hyclate (Doxycycline Hyclate 100 Mg Cap) 100 mg PO BID [facility] Stop: 06/28/23 20:59 Last Admin: 06/22/23 08:23 Dose: 100 mg Famotidine (Famotidine 20 Mg Tab) 20 mg PO HS [facility] Stop: 07/21/23 20:59 Last Admin: 06/21/23 19:40 Dose: 20 mg Fluticasone Propionate (Fluticasone Propionate Na Spr 16 Gm Btl) 2 sprays NA BID [facility] Stop: 07/21/23 20:59 Last Admin: 06/22/23 08:23 Dose: 2 sprays Guaifenesin (Guaifenesin 600 Mg Tabcr) 1,200 mg PO Q12 [facility] Stop: 07/21/23 14:59 Last Admin: 06/22/23 08:23 Dose: 1,200 mg Hydrocodone Bit/Homatropine Methylb (Hydrocodone/Homatropine Syrup 5mg/1.5mg 5ml Udp) 5 ml PO Q6H PRN PRN Reason: Cough Stop: 07/05/23 13:14 Last Admin: 06/22/23 00:19 Dose: 5 ml Ceftriaxone Sodium 2,000 mg/ (Dextrose) 50 mls @ 100 mls/hr IV Q24H [facility] Stop: 06/28/23 14:59 Last Infusion: 06/21/23 16:58 Dose: Infused Lactobacillus Acidophilus (Advanced Probiotic 625 Mg Capsule) 625 mg PO DAILY [facility] Stop: 07/22/23 08:59 Last Admin: 06/22/23 08:24 Dose: 625 mg Levothyroxine Sodium (Levothyroxine Sodium 50 Mcg Tablet) [facility]: 07/22/23 06:29 Last Admin: 06/22/23 05:36 Dose: 50 mcg Magnesium Oxide (Magnesium Oxide 400 Mg Tab) 400 mg PO [facility] Stop: 07/21/23 20:59 Last Admin: 06/21/23 19:41 Dose: 400 mg Metoprolol Tartrate (Metoprolol Tartrate 50 Mg Tab) 50 mg PO BID [facility] Stop: 07/21/23 20:59 Last Admin: 06/22/23 08:25 Dose: 50 mg Multivitamins (Multivitamin Tab) 1 tab PO [facility] Stop: 07/21/23 20:59 Last Admin: 06/21/23 19:40 Dose: 1 tab Ondansetron HCl (Ondansetron Inj 2 Mg/Ml 2 Ml Vial) 4 mg IV Q4H PRN PRN Reason: Nausea And Vomiting Stop: 07/21/23 14:47 Paroxetine HCl (Paroxetine Hcl 20 Mg Tab) 40 mg PO [facility] Stop: 07/21/23 20:59 Last Admin: 06/21/23 19:40 Dose: 40 mg Prednisone (Prednisone 20 Mg Tab) [address] [facility] Stop: 07/22/23 08:59 Last Admin: 06/22/23 08:25 Dose: 40 mg
[2023-06-22] MEDS: ENOXAPARIN INJ 40 MG/0.4 ML SYR SQ SCH (20:48)
[2023-06-23 07:12] VITALS: TEMP 98.4
[2023-06-23 07:37] VITALS: RESP 18
[2023-06-23 09:22] LABS: Estimated Average Glucose 131 mg/dl; Hemoglobin A1C 6.2 % (4.5-5.6)
[2023-06-23 09:26] LABS: Hematocrit (blood only) 38.7 % (37.0-47.0); Hemoglobin 13.2 g/dl (12.0-16.0); Mean Corpuscular Hemoglobin 30.3 pg (25.0-34.0); Mean Corpuscular Hgb Conc 34.1 g/dL (32.0-36.0); Mean Platelet Volume 10.2 fL (9.4-12.4); Platelet Count 387 K/uL (130-400); RDW Coefficient of Variation 13.6 % (11.5-14.5); RDW Standard Deviation 44.4 fL (36.4-46.3); Red Blood Count 4.35 M/uL (4.20-5.40)
[2023-06-23 09:38] LABS: Albumin Globulin Ratio 1.3 (0.9-2); BUN Creatinine Ratio 15.5 (10-20); Bilirubin,Total 0.2 mg/dl (0.2-1.0); Calcium 9.1 mg/dl (8.6-10.3); Creatinine Clr Calc Pharmacy 95.4 ml/min; Est GFR (African American) 98.7 ml/min; Est GFR (Non-African American) 85.1 ml/min; Globulin 3.1 gm/dl (2.5-4.0); Magnesium 1.7 mg/dl (1.7-2.4); Potassium 3.6 mmol/L (3.5-5.1); Total Protein 7.1 gm/dl (6.0-8.3)
[2023-06-23 10:59] VITALS: PULSE 64; O2SAT 95
[2023-06-23 11:18] LABS: ALC (manual) 5.59 K/uL (1.2-3.4); ANC (manual) 5.36 K/uL (1.4-6.5); Lymphocytes # (manual) 3.53 K/uL (1.2-3.4); Lymphocytes % (manual) 31 %; Monocytes # (manual) 0.46 K/uL (0.11-0.59); Monocytes % (manual) 4 %; Neutrophils # (manual) 5.36 K/uL (1.40-6.50); Neutrophils % (manual) 47 %; Reactive Lymphocytes # (manual) 2.05 K/uL; Reactive Lymphocytes % (manual) 18 %
--- NOTE | 2023-06-23 12:01 | Discharge Summary ---
Discharge Summary Date of Service June 23, 2023 Notes For Next Care Provider Patient admitted for hypoxia, viral pneumonia and tested positive for influenza A. She was empirically started on IV antibiotics with IV ceftriaxone and doxycycline. She will complete course of oral doxycycline and cefuroxime to complete a 7-day course. She was not treated with Tamiflu as she was out of the window at presentation. On discharge she was no longer requiring oxygen supplementation. She is being discharged on albuterol inhaler as needed. Given history of tobacco use would recommend PFT testing as outpatient once current illness resolved. Medication Changes From Visit Doxycycline 100 mg by mouth twice daily for additional 5 days, next dose evening of 06/23/2023 Cefuroxime 500 mg by mouth twice daily for additional 4 days, next dose due morning of 06/24/2023 Prednisone 40 mg (2 tablets) daily for additional 3 days, next dose due morning of 06/24/2023 Benzonatate 100 mg 3 times a day as needed for cough Albuterol inhaler use every 6 hours as needed for shortness of breath or wheezing Admission HPI Per Admitting Provider This is a 42 F with PMHx of obesity with BMI 37.6, previous tobacco use She reports having had symptoms since last Wednesday, and reports her son who is 9 yo was sick right before she was. She states her symptoms include, cough, fever, chills, congestion, and these have persisted and she had a pulse ox at home which was running low which concerned her therefore presented to hospital today. On Wednesday she attempted to go to urgent care but did not get seen due to high volume of patients there. She is also reporting VASQUEZ with minimal ADLS. Cough is present, initially dry and now productive, and not feels sore and that it is painful to cough. Her mucous from the nose is yellow/greenish and still feels very congested. OTC meds of dextromethorphan, guaifenesin, and tylenol and has been trying these at home with minimal relief. Social: Current tobacco user with cigarettes since mid 20s and has quit a few times over the years but always restarts. She stopped smoking 2 days ago due to her symptoms. Admits to occasional alcohol use. Denies illicit drug use or marijuana. Admission Exam Per Admitting Provider General: awake, alert, no apparent distress, + obese with BMI of 37.6 Head: Normocephalic, atraumatic ENT: PERRL, EOMI, no pharyngeal exudate, mucous membranes moist Chest: on 3L, + tight breath sounds throughout, + rales at bases, no wheezing, no crackles, adventitious breath sounds Cardiac: Regular rate and rhythm, no murmur, no JVD, normal peripheral pulses, good capillary refill Abdominal: NABS x 4 quadrants, soft, nondistended, nontender to palpation, no rebound or guarding Extremities: Normal inspection, no peripheral edema or erythema, calfs nontender to palpation Psych: Normal mood and affect Neuro: AAO x 3, strength intact bilaterally and rated 5/5, no motor deficits, speech is clear, no peripheral sensory deficits Principal Dx & Hospital Course #1 = Principal Diagnosis (1) Influenza A: (2) Tobacco use: (3) Hypoxia: (4) Hypothyroidism: (5) Anxiety: (6) GERD (gastroesophageal reflux disease): Plan This is a 42-year-old female with significant past medical history of obesity, tobacco abuse, hypothyroidism and GERD who presents to ED secondary to hypoxia and worsening shortness of breath. Acute hypoxic respiratory failure secondary to influenza A Viral URI -influenza A Viral pneumonia Tobacco use Patient admitted to [facility] ---CTA of chest revealed no evidence of PE, small patchy ground glass airspace opacities seen within the right lung, more pronounced in the right upper lobe. This favors a mild atypical/viral pneumonitis. Mild central bronchial wall thickening with evidence of mild air trapping. Pulmonary toilet encouraged with flutter valve and incentive spirometer, nebs She is no longer requiring oxygen She feels stable to be discharged Will transition antibiotics to oral doxycycline and cefuroxime to complete a 7- day course. She will receive a dose of IV Rocephin prior to discharge. Continue prednisone 40 mg daily for additional 3 days. She will be prescribed albuterol inhaler every 6 hours as needed for shortness breath and wheezing. Given history of tobacco use recommend pulmonary function testing as outpatient once illness resolves Elevated fasting glucose Prediabetes A1c 6.2, patient admits to weight gain Encourage diet lifestyle modifications. Recommend discussing with primary care provider to establish good plan. Recommend repeat A1c in 3 to 6 months Tobacco abuse Encourage cessation Anxiety Chronic, stable Continue Paxil GERD She states that she uses nebivolol for reflux issues Continue nebivolol and pepcid Obesity, BMI 37.6 Encourage diet and lifestyle modification DVT ppx: SQ Lovenox, encourage cessation FULL CODE PCP: None Dispo: Patient is medically stable for discharge and will discharge later on today Pt was seen and examined in collaboration with Dr. Morris, please see addendum A total of 45 minutes was spent coordinating, documenting, and providing care for this patient excluding time spent in the performance of separately billed se rvices. This included personally viewing all current laboratories and imaging studies, medication reconciliation, outpatient chart review, and discussion with specialists. Discharge Exam Gen: WD/WN, NAD, A&O x3 HEENT: Normocephalic, atraumatic, conjunctivae moist, sclerae anicteric, mucous membranes moist. Lung: Clear to Auscultation bilaterally, no wheezes/rales/rhonchi , Heart: Regular rate, regular rhythm, no murmurs, rubs, or gallops Abdomen: Soft, NT, ND +BS x 4 Extremities: No edema Skin: Warm, no rash, negative turgor. Updated Medication List Medication Instructions Recorded Confirmed Type Lactobacillus acidophilus 10 10,000 mmu cells PO DAILY 06/21/23 06/21/23 History billion cell capsule (Probiotic) cetirizine 10 mg tablet (Zyrtec) 10 mg PO DAILY PRN Allergy Symptoms 06/21/23 06/21/23 History famotidine 20 mg tablet (Pepcid) 20 mg PO HS 06/21/23 06/21/23 History levothyroxine 50 mcg tablet 50 mcg PO QAM 06/21/23 06/21/23 History magnesium 500 mg tablet 500 mg PO HS 06/21/23 06/21/23 History multivitamin 1 tab PO HS 06/21/23 06/21/23 History nebivolol 10 mg tablet 10 mg PO HS 06/21/23 06/21/23 History paroxetine HCl 40 mg tablet 40 mg PO HS 06/21/23 06/21/23 History albuterol sulfate 90 mcg/actuation 1 inh inhalation Q6H PRN shortness 06/23/23 Rx aerosol inhaler of breath or wheezing #6.7 grams benzonatate 100 mg capsule 100 mg PO TID #30 caps 06/23/23 Rx cefuroxime axetil 500 mg tablet 500 mg PO BID 4 days #8 tabs 06/23/23 Rx doxycycline hyclate 100 mg capsule 100 mg PO BID 5 days #10 caps 06/23/23 Rx prednisone 20 mg tablet 40 mg (2 x 20 mg) PO DAILY 3 days 06/23/23 Rx #6 tabs Hospital Stay Data Consultations 06/21/23 13:28 ED Decision to Admit Stat Diagnostic Imagining Performed Chest X-Ray 06/21/23 07:26 XR chest 1V portable HISTORY: 42 years-old Female Dyspnea acute shortness of breath COMPARISON: None TECHNIQUE: AP view of the chest FINDINGS: Cardiomediastinal and hilar silhouettes are within normal limits. No pneumothorax, pleural effusion, airspace consolidation or pulmonary edema. Bones of the chest appear grossly intact. IMPRESSION: No acute process. ACT 112: Negative or not required by law. The above report was generated using voice recognition software. It may contain grammatical, syntax or spelling errors. Electronically signed by: German Mendoza M.D. 06/21/2023 8:24 AM Chest CTA 06/21/23 10:00 CHEST CTA for PULMONARY ARTERIES CT DOSE: 834.28 mGy.cm HISTORY: Shortness of breath, HYPOXIA, FLU A + TECHNIQUE: Multiaxial CT images of the chest were performed following the intravenous administration of contrast to evaluate the pulmonary arteries. 3D/Maximal intensity projection images were also obtained. Sagittal and coronal reformations were also reviewed. A dose lowering technique was utilized adhering to the principles of ALARA. COMPARISON STUDY: None. FINDINGS: Normal caliber thoracic aorta with no evidence for a dissection. The heart is normal in size. No pleural or pericardial effusions. No filling defects within the pulmonary arteries to suggest a pulmonary embolus. No acute fractures. Limited views of the upper abdomen demonstrate a normal liver, spleen, and adrenal glands. Prior cholecystectomy. The thyroid gland enhances normally. No mediastinal or left hilar lymphadenopathy. There are borderline enlarged right hilar lymph nodes measuring up to 8 mm in short axis diameter. These are asymmetric in comparison to the left side. Normal esophagus. No pneumothorax. The trachea is patent. Mild central bronchial wall thickening with a few partially opacified distal right lower lobe bronchi. Mosaic attenuation within the lungs suggestive of mild air trapping. There are small patchy groundglass airspace opacities seen within the right lung most pronounced within the right upper lobe. This favors a mild atypical/viral pneumonitis. Right basilar linear densities favor subsegmental atelectasis or scarring. IMPRESSION: 1. No evidence for a pulmonary embolus. 2. There are small patchy groundglass airspace opacities seen within the right lung most pronounced within the right upper lobe. This favors a mild atypical/viral pneumonitis. 3. Mild central bronchial wall thickening with evidence for mild air trapping. ACT 112: Negative or not required by law. Electronically signed by: Chris Leonard M.D. 06/21/2023 12:04 PM Pending Results Patient Have Any Pending Studies at Discharge: No Discharge Instructions Given to Patient (Per Discharging Provider) MEDICATION CHANGES: Doxycycline 100 mg by mouth twice daily for additional 5 days, next dose evening of 06/23/2023 Cefuroxime 500 mg by mouth twice daily for additional 4 days, next dose due morning of 06/24/2023 Prednisone 40 mg (2 tablets) daily for additional 3 days, next dose due morning of 06/24/2023 Benzonatate 100 mg 3 times a day as needed for cough Albuterol inhaler use every 6 hours as needed for shortness of breath or wheezing SUMMARY OF TEST RESULTS: You were admitted to hospital secondary to shortness of breath and low oxygen levels. Imaging revealed you had evidence of a viral pneumonia. You tested positive for influenza A. You were placed on antibiotics to treat any possible bacterial component in this will be continued at discharge. On day of discharge you are not requiring any oxygen. PENDING TEST RESULTS: None RECOMMENDATIONS FOR FOLLOW-UP: Please follow-up with your primary care provider within 7 to 10 days upon discharge. Please complete antibiotics in their entirety. Recommend taking daily probiotic while on antibiotic therapy. Recommend continued use of albuterol inhaler as needed for shortness of breath and wheezing. Recommend to take it easy for the next 2 weeks. Gradually increase activity as tolerated. Take all medications as prescribed. It is strongly encouraged that you stop smoking. Your A1c was elevated at 6.2. You meet criteria for prediabetes. It is recommended that you have this repeated with your primary care provider in 3 months. Weight loss, diet and exercise are encouraged to improve your A1c and to help prevent type 2 diabetes. We recommend discussing with your primary care provider to establish a good weight reduction and exercise plan to help you achieve your goal. OTHER INSTRUCTIONS: Seek medical attention if you have: * temperature above 101 * chest pain or trouble breathing * abdominal pain, nausea, vomiting * diarrhea, dark stools or bloody stools * any unanswered questions or concerns Call 911 if symptoms are severe. Please take good care of yourself. It has been a pleasure taking care of you. Please take care of yourself. If you have any questions regarding your recent hospitalization please contact [facility] and request Cristóbal Ng @ [phone]. Sravani Heller PA-C Total Time Total Time Spent Total Time Spent (In Minutes): 45 minutes Supervising Physician Co-Signing Physician Notes Late entry; Patient seen and examined at bedside. She reports that her shortness of breath has improved significantly. She is in room air; vital stable. Under discharged home with instruction to follow-up with PCP and pulmonology. I have reviewed the advanced practitioner's documentation, and I agree with, and take responsibility for the plan of care I spent a total of 20 minutes coordinating, documenting, and providing care for this patient excluding time spent in the performance of separately billed services. All of the aforementioned completed while collaborating with the assigned advanced practitioner for a full treatment plan
[2023-06-23 12:31] VITALS: BP 105/67
== END 2023-06-23 13:03 | disposition home or self-care (01) | DRG 193 ==
LOC: ED 06:37 → SUATTDRO 12:41 → 3W 12:41